=== PATIENT | male | born 2005 | race Two or more races ===

== ENCOUNTER 2025-01-11 11:00 | Outpatient (RCR) | payer MEDICAID, SELFPAY ==
--- NOTE | 2024-12-25 10:45 | PT.OIERPT ---
PT OP Initial Eval Patient Information Outpatient Physical Therapy Treatment Date: 12/25/24 Visit Reasons: PAIN IN LEFT SHOULDER Medical Diagnosis: Left Shoulder Pain Treatment Dx #1: Left Shoulder Pain Start of Care: 12/25/24 Date of Onset: December 2023 Smoking Status Smoking Status: Never smoker Initial Assessment Subjective: Pt is a 19 y/o reports of left shoulder pain (5/10) after a lifting injury during a work out routine since December 2023. Pt has limitation with overhead motions, heavy lifting, working out, work duties, and performing recreational activities. Objective: Left Shoulder AROM: all motions are WNL Left Shoulder MMTs: grossly 4-/5 Left Scapula MMTs: grossly 3+/5 Special Test (+) bicep load II test Assessment: Pt demonstrate left shoulder pain consistent with possible labral involvement leading to difficulty with ADLs. Pt will attempt physical therapy to increase ROM, strength, and work on stability. Short Term and [employer] Goals 1) Increase left shoulder MMTs grossly to 4/5 in 6 wks to be able to perform overhead motions 2) Increase left scapula MMTs grossly to 4-/5 in 6 wks to be able to work 3) Decrease shoulder pain to 2/10 in 6 wks to be able to perform recreational activities 4) Indep with HEP Treatment Plan 1) Manual Therapy 2) Therapeutic Activities 3) Therapeutic Exercises 4) Modalities (ice, heat) Frequency and Duration: 2 x wk for 6 wks Certification Dates: 12/25/24 to 03/27/25 Procedure Charges OP PT Eval Mod Complex 30 minutes: Yes
--- NOTE | 2025-01-03 11:50 | PT.ODAYNRPT ---
PT Outpatient Daily Note OP Daily Note Outpatient Physical Therapy Treatment Date: 01/03/25 Visit Reasons: PAIN IN LEFT SHOULDER Subjective: Pt reports minimal pain at this time. Objective: Please see flow sheet for ther ex list. Assessment: Interventions completed with minimal pain. Plan: Assess response to treatment. Length of Time (minutes) of Treatment: 30 Minutes Procedure Charges Therapeutic Exercise 30 minutes: Yes
--- NOTE | 2025-01-08 09:45 | PT.ODAYNRPT ---
PT Outpatient Daily Note OP Daily Note Outpatient Physical Therapy Treatment Date: 01/08/25 Visit Reasons: PAIN IN LEFT SHOULDER Subjective: Pt's shoulder is about the same. Pt continues to have pain within the joint. Objective: Please see flow chart for list of ther ex performed Assessment: demonstrate functional shoulder AROM, however, continues to have pain in the proximal region of the bicep attachment Plan: Continue with PT Length of Time (minutes) of Treatment: 30 Minutes Procedure Charges Therapeutic Exercise 30 minutes: Yes
--- NOTE | 2025-01-11 14:25 | PT.ODAYNRPT ---
PT Outpatient Daily Note OP Daily Note Outpatient Physical Therapy Treatment Date: 01/11/25 Visit Reasons: PAIN IN LEFT SHOULDER Subjective: Pt reports he continues to have pain, no progress at this time. Objective: Please see flow sheet for ther ex list. Assessment: Poor progress in clinic due to pain response. Plan: Continue with pOC. Length of Time (minutes) of Treatment: 30 Minutes Procedure Charges Therapeutic Exercise 30 minutes: Yes
--- NOTE | 2025-01-14 08:56 | PT.ODS1RPT ---
PT OP Progress/Discharge Note Date of Service: 01/14/25 Progress Note/DC Note Progress Note/Discharge Note: DC Note Patient Information Visit Reasons: PAIN IN LEFT SHOULDER Service Discharge Date: 01/14/25 Status Assessment: Pt has been seen for 4 visits (eval + 3 visits). Pt last treated on 01/11/25. Pt will be d/c from care due to change in insurance starting 01/15/25. Pt did not meet set goals in therapy; thank you for your referrals.
== END 2025-01-14 23:59 | disposition home or self-care (01) ==
LOC: CPTX 11:00
PROVIDERS: PCP Internal Medicine; Referring Provider Internal Medicine; Visit Provider Internal Medicine
DX: M25.512 Pain in left shoulder (principal); S49.92XD Unspecified injury of left shoulder and upper arm, subsequent encounter; X50.0XXD Overexertion from strenuous movement or load, subsequent encounter
CPT/HCPCS: 97110; 97162